=== PATIENT | male | born 1965 | race Caucasian/White ===

== ENCOUNTER 2024-09-21 19:21 | Emergency (ER) | payer OTHER ==
[~2024-09-21] VITALS: Ht 175.3 cm; Wt 73.4 kg
[2024-09-21] MEDS ORDERED: COZAAR50 MG PO ×2 (19:36→21:25)
[2024-09-21] MEDS ORDERED: PACERONE200 MG PO ×2 (19:36→21:25)
[2024-09-21] MEDS ORDERED: LIPITOR10 MG PO ×2 (19:36→21:25)
[2024-09-21] MEDS ORDERED: VENLAFAXINE HC150 MG PO ×2 (19:37→21:25)
[2024-09-21] MEDS ORDERED: ATIVAN1 MG PO (19:37)
[2024-09-21] MEDS ORDERED: FLOMAX0.4 MG PO ×2 (19:37→21:25)
[2024-09-21] MEDS ORDERED: JANTOVEN2.5 MG PO ×2 (19:38→21:25)
[2024-09-21] MEDS ORDERED: TOPROL XL50 MG PO ×2 (19:39→21:25)
[2024-09-21] MEDS ORDERED: ASPIRIN81 MG PO ×2 (21:04→21:25)
[2024-09-21 21:05] LABS: ANION GAP 11.2 (7-21); BUN/CREATININE RATIO 13.79 (6.0-28.6); CALCIUM 9.3 mg/dL (8.5-10.1); CREATININE, SERUM 1.45 mg/dL (0.70-1.30); POTASSIUM 4.2 mmol/L (3.5-5.1)
[2024-09-21 21:06] LABS: INR 1.02 (0.80-1.30)
[2024-09-21] MEDS ORDERED: LORazepam 1 MG HOME.PACK PO ONE (21:30)
[2024-09-21 21:47] VITALS: BP 170/103
--- NOTE | 2024-09-22 13:50 | EKG ---
[facility] [address] [facility] [place] [address] Signed Normal sinus rhythm Left axis deviation Right bundle branch block Abnormal ECG No previous ECGs available Confirmed by Nadeen Burdick MD () on 09/22/2024 1:50:21 PM Electronically Signed By: NADEEN BURDICK MD 09/22/24 1350 PATIENT NAME: RAFAELLENNYCAROLINA MEDINA Electrocardiogram DATE OF : 65 PHYSICIAN: NADEEN BURDICK MD REPORT #: [id number] REPORT IS CONFIDENTIAL AND NOT TO BE RELEASED WITHOUT AUTHORIZATION
== END 2024-09-21 21:48 | disposition home or self-care (01) ==
LOC: ED 19:21
PROVIDERS: Family Medicine
DX: Z76.0 Encounter for issue of repeat prescription (principal); I48.91 Unspecified atrial fibrillation; Z79.01 Long term (current) use of anticoagulants; Z79.82 Long term (current) use of aspirin; Z91.030 Bee allergy status
CPT/HCPCS: 36415; 80048; 85610; 93005; 93010; 99282